=== PATIENT | female | born 1980 | race Caucasian/White ===

== ENCOUNTER 2017-11-07 11:15 | Day surgery (SDC) | payer OTHER ==
[2017-11-07] MEDS ORDERED: Ringers Lactate 1,000 ML IV ONE (11:31)
[2017-11-07 12:00] LABS: Absolute Lymphocytes (CBC) 1.9 K/uL (0.7-4.9); Absolute Monocytes 0.3 K/uL (0.1-1.3); Absolute Neutrophil 4.4 K/uL (1.8-8.0); Basophils % 0.6 % (0-1.3); Eosinophils % 1.4 % (0-4.4); Hematocrit 35.5 % (36.0-45.0); Lymphocytes % 28.4 % (15.3-44.8); MCH 28.2 pg (27.0-35.0); MCV 85.1 fL (80-100); MPV 8.8 fL (7.6-11.3); Monocytes % 4.9 % (3.3-12.3); RBC Red Blood Cell Count 4.18 M/uL (3.86-4.86)
[2017-11-07 12:17] LABS: ALT/SGPT 18 U/L (12-78); AST/SGOT 21 U/L (15-37); Albumin 3.8 g/dL (3.4-5.0); Alkaline Phosphatase 123 U/L (45-117); BUN Blood Urea Nitrogen 11 mg/dL (7-18); Bicarbonate 27 mmol/L (21-32); Bilirubin Direct 0.1 mg/dL (0-0.2); Bilirubin Total 0.5 mg/dL (0.2-1.0); Glucose Level 84 mg/dL (74-106); Potassium 3.6 mmol/L (3.5-5.1); Protein, Total 7.9 g/dL (6.4-8.2); Sodium Level 142 mmol/L (136-145)
[2017-11-07 12:24] LABS: Protime INR 1.06
[2017-11-07] MEDS ORDERED: LIDOCAINE 1% MPF 2 ML AMPULE ONE (12:41)
[2017-11-07] MEDS ORDERED: PROPOFOL 200 MG/20 ML VIAL IV ONE (12:41)
--- NOTE | 2017-11-07 17:11 | OP ---
Surgeon: Abilio Valladares MD Procedure: Esophagogastroduodenoscopy. Indication For Procedure: Epigastric pain, nausea. Plan For Anesthesia: Monitored anesthesia care. Complexity: Average. Technique: After obtaining informed consent from the patient and explaining risks and complications, which include, but are not limited to bleeding, infection, perforation,, and anesthesia complication , the patient was placed in a left lateral position and sedation was given. From then on, the scope was advanced into the mouth and carefully guided up till the third portion of the duodenum. After th e completion of examination and all diagnostic maneuvers, the scope and equipment were withdrawn and procedure terminated in a safe manner. Findings: Esophagus: No gross lesion in the entire esophagus. The GE junction was around 37 cm fro m the incisors. Stomach: there was evidence of gastric sleeve surgery with postoperative changes. No ulceration was visible. However, in the antrum, mucosal irregularities, which are likely related to surgical ortega es versus erosion was seen. Biopsies were taken. Gastric antral and body biopsies were also taken d ue to the mild patchy erythema. Duodenum: The bulb appeared to have granular mucosa. Small bowel biopsies taken as well After advan cing the scope to the third portion of the duodenum. Complications: None. Tolerance Of Anesthesia: Excellent. Postoperative Diagnoses: Post gastric surgery, gastric erosion. Plan: 1.Await pathology results. 2.oral PPI like Protonix 40 mg once a day. 3.Follow up in the GI clinic in 2 weeks. We will await MRI that has been ordered for the liver. If no pathology seen, may need ultrasound to rule out cholelithiasis. US/MODL Voice ID: [id number] Report ID: [id number]
[2017-11-09 18:59] LABS: HBsAG Nonreactive (Nonreactive); Hepatitis A IgM Antibody Nonreactive
[2017-11-10 18:36] LABS: Alpha Fetoprotein-Tumor Marker 3.8 ng/mL (<6.1)
== END 2017-11-07 13:30 | disposition home or self-care (01) ==
LOC: ENDO 11:15
PROVIDERS: ATTEND Internal Medicine Gastroenterology
PROC: 0DB68ZX Excision of Stomach, Via Natural or Artificial Opening Endoscopic, Diagnostic (ICD-10-PCS; 2017-11-07)
PROC: 0DB98ZX Excision of Duodenum, Via Natural or Artificial Opening Endoscopic, Diagnostic (ICD-10-PCS; principal; 2017-11-07 13:15)
DX: K29.50 Unspecified chronic gastritis without bleeding (principal); K76.9 Liver disease, unspecified; E07.9 Disorder of thyroid, unspecified; Z98.84 Bariatric surgery status
CPT/HCPCS: 36415; 80048; 80074; 80076; 81025; 82105; 85025; 85610; 88305; 88312; J2001

== ENCOUNTER 2019-04-22 07:33 | Day surgery (SDC) | payer OTHER ==
--- NOTE | 2019-04-19 15:34 | EKG ---
Test Date: 2019-04-19 Test Time: 14:53:50 Executive Vice President: [employer]EST MEASUREMENT RESULTS: Intervals: Rate: 69 NH: 124 QRSD: 86 QT: 400 QTc: 428 [place]: P: 38 NH: 124 QRS: 48 T: 46 INTERPRETIVE STATEMENTS: Normal sinus rhythm Normal ECG No previous ECG available for comparison Electronically Signed On 04-19-19 15:34:11 LONG LINES OPERATOR by Scott Watres
--- NOTE | 2019-04-19 15:35 | RAD REPORT ---
EXAM DESCRIPTION: Jody Miller (2 Views)04/19/2019 3:09 pm CLINICAL HISTORY: Abdominal pain. Preop for cholecystectomy COMPARISON: None FINDINGS: The lungs appear clear of acute infiltrate. The heart is normal size IMPRESSION: No acute abnormalities displayed
[2019-04-19 15:41] LABS: Absolute Lymphocytes (CBC) 1.8 K/uL (0.7-4.9); Basophils % 1.1 % (0-1.3); Hematocrit 32.9 % (36.0-45.0); Lymphocytes % 28.3 % (15.3-44.8); MPV 8.8 fL (7.6-11.3); RBC Red Blood Cell Count 4.08 M/uL (3.86-4.86)
[2019-04-19 16:00] LABS: BUN Blood Urea Nitrogen 12 mg/dL (7-18); Bicarbonate 27 mmol/L (21-32); Glucose Level 94 mg/dL (74-106); Potassium 3.7 mmol/L (3.5-5.1); Sodium Level 140 mmol/L (136-145)
[2019-04-19 16:12] LABS: Albumin 3.6 g/dL (3.4-5.0); Bilirubin Direct 0.1 mg/dL (0-0.2); Bilirubin Total 0.3 mg/dL (0.2-1.0); Protein, Total 8.1 g/dL (6.4-8.2)
--- OUTSIDE RECORDS SUMMARY | 2019-04-22 07:38 | XMS REPORT ---
:1980 [facility] Address [address] [place] [address] Dr. Cisneros [address] [place] [id number] Care Team Providers Name Role Phone Unavailable Unavailable Unavailable Payers Payer Name Policy Type Policy Number Effective Date Expiration Date Problems This patient has no known problems. Allergies, Adverse Reactions, Alerts This patient has no known allergies or adverse reactions. Medications This patient has no known medications.
[2019-04-22 07:52] VITALS: O2SAT 100
[2019-04-22] MEDS ORDERED: Ringers Lactate 1,000 ML IV ONE (07:56)
[2019-04-22] MEDS ORDERED: CEFOXITIN/SWI 1gm 1 GM/10 ML SYR ONE (07:57)
[2019-04-22] MEDS ORDERED: ROCURONIUM 50 MG/5 ML VIAL IV ONE (07:59)
[2019-04-22] MEDS ORDERED: propofoL 200 MG/20 ML VIAL IV ONE (07:59)
[2019-04-22] MEDS ORDERED: FENTANYL CITR 100 MCG/2 ML ONE ×2 (07:59→09:21)
[2019-04-22] MEDS ORDERED: LIDOCAINE 1% MPF 5 ML VIAL ONE (07:59)
[2019-04-22] MEDS ORDERED: MIDAZOLAM HCL 2 MG/2 ML INJ ONE (07:59)
[2019-04-22] MEDS ORDERED: GLYCOPYRROLATE 0.2 MG/ML SYR ONE (09:25)
[2019-04-22] MEDS ORDERED: KETOROLAC 30 MG/ML INJ ONE (09:25)
[2019-04-22] MEDS ORDERED: ONDANSETRON 4 MG/2 ML VIAL ONE ×2 (09:25→10:04)
[2019-04-22] MEDS ORDERED: NEOSTIGMINE 1 MG/ML -5 ML ONE (09:25)
[2019-04-22] MEDS ORDERED: MEPERIDINE HCL 25 MG/0.5 ML ONE (09:39)
[2019-04-22] MEDS: HYDROMORPHONE HCL 1 MG/ML INJ ONE ×2 (10:04→10:13)
[2019-04-22 10:52] VITALS: BP 128/67; TEMP 97.1
--- NOTE | 2019-04-22 11:10 | OP ---
Date of Procedure: 04/22/2019 Surgeon: Landon Yost MD Boilermaker Loftsman: DANIEL Boyce. Preoperative Diagnosis: Symptomatic cholelithiasis. Postoperative Diagnosis: Symptomatic cholelithiasis. Procedure: Laparoscopic cholecystectomy. Estimated Blood Loss: Minimal. Specimen: Gallbladder. Findings: As above. Anesthesia: General. Complications: None. Patient tolerated the procedure in stable condition, taken to Recovery in good general condition. Procedure In Detail: Patient was brought to the OR and placed in supine position. General anesthesi a was begun. The patient was prepped and draped in the usual sterile fashion. Marcaine 0.5% was inf iltrated locally, 15-blade was used to make a 1 cm supraumbilical midline incision. Subcutaneous tis ariana divided. The fascia was identified and divided. A #1 Vicryl stay suture was placed. Peritoneal cavity was entered with sharp and blunt dissection. A 12-mm trocar was placed into the peritoneal c avity. Under direct vision, pneumoperitoneum was established and then three 5-mm trocars placed, 1 i n the epigastrium just to the right of midline and 2 in the right subcostal region. Laparoscopy reve aled some minimal adhesions to the gallbladder consistent with chronic cholecystitis, which were take n down with sharp and blunt dissection. Bleeding controlled with cautery. Fundus retracted superior ly. Infundibulum was identified and retracted inferolaterally. Cystic duct and cystic artery were c learly identified with blunt dissection. Clips placed. Both structures were divided. Cautery was u sed to remove the gallbladder from the liver bed. Bleeding on the liver bed was controlled with caut jason. The gallbladder was retrieved through the umbilicus via an EndoCatch bag. Right upper quadrant examined. No evidence of bleeding or bile leakage appreciated. Subsequently, all trocars were victor hugo yan under direct vision. Stay sutures were tied to each other across the fascial defect. Subcu woun ds were irrigated. Bleeding controlled with cautery. A 3-0 chromic used for subcutaneous tissue and close the skin. Sterile dressing was applied. Patient awakened and taken to Recovery in good gener al condition. Discharge Note: Patient will go to day surgery and home when stable. Disposition: Home. Condition: Stable. Discharge Instructions: Resume home medications and diet. Activity as tolerated. No heavy lifting. Remove outer dressing in 2 days. Shower. Keep wound clean and dry. Follow up in my office in 1 w [place]. Call for appointment. Tylenol No. 3 one tablet p.o. q.4 p.r.n. pain. LUANA/JAXON Voice ID: [id number] Report ID: [id number]
[2019-04-22] MEDS ORDERED: HYDROCODONE/APAP 7.5/325 MG TAB ONE (11:16)
== END 2019-04-22 12:00 | disposition home or self-care (01) ==
LOC: OR 07:33
PROVIDERS: ATTEND Surgery
PROC: 0FT44ZZ Resection of Gallbladder, Percutaneous Endoscopic Approach (ICD-10-PCS; principal; 2019-04-22 09:00)
DX: K80.10 Calculus of gallbladder with chronic cholecystitis without obstruction (principal); E07.9 Disorder of thyroid, unspecified
CPT/HCPCS: 93005; 85025; 80048; 36415; 82150; 81025; 80076; 88304; 71046; 47562; J2704; J2250; J3010 ×2; J2175; J1170; J2710; J7120; J2405 ×2